=== PATIENT | female | born 1950 | race African-American/Black ===

== ENCOUNTER 2019-12-20 06:23 | Day surgery (SDC) | payer MEDICARE, OTHER ==
[2019-12-16 08:47] LABS: BASOPHILS % (AUTO) 1.2 % (0.0-2.0); EOSINOPHILS % (AUTO) 1.6 % (0.0-3.0); HEMATOCRIT 37.3 % (37.0-47.0); LYMPHOCYTES % (AUTO) 28.5 % (20.0-45.0); MEAN CORPUSCULAR VOLUME 85 FL (80-99); NEUTROPHILS % (AUTO) 62.8 % (45.0-75.0); PLATELET COUNT 258 K/UL (150-450); RED CELL DISTRIBUTION WIDTH 14.6 % (11.6-14.8); WHITE BLOOD COUNT 4.2 K/UL (4.8-10.8)
[2019-12-16 08:56] LABS: INR 0.9 (0.9-1.1)
[2019-12-16 08:59] LABS: ANION GAP 10 mmol/L (5-15); BLOOD UREA NITROGEN 12 mg/dL (7-18); CALCIUM 9.9 MG/DL (8.5-10.1); CARBON DIOXIDE 28 MMOL/L (21-32); CHLORIDE 106 MMOL/L (98-107); CREATININE 0.6 MG/DL (0.55-1.30); POTASSIUM 3.6 MMOL/L (3.5-5.1); SODIUM 144 MMOL/L (136-145)
--- NOTE | 2019-12-16 15:45 | Pre-op HX & Phy Repo 2 SIG ---
DATE OF ADMISSION: 12/20/2019 DATE OF EVALUATION: 12/16/2019 REASON FOR EVALUATION: I was asked by Dr. Ron Antony to see this 69-year-old female, who is going for elective surgery on the left eye. The surgery scheduled for December 20, 2019. The patient has a nuclear sclerotic cataract, left eye. Please see full Ophthalmology History and Physical by Dr. Ron Antony. The patient was evaluated in the Outpatient Procedure of [facility]. PAST MEDICAL HISTORY AND REVIEW OF SYSTEMS: Remarkable for GERD. Denies history of hypertension. No stroke. No chest pain, palpitation, or heart attack. Denies history of respiratory problem. No thyroid problem. No peptic ulcer disease. The patient has occasional heartburn and acid reflux. No renal failure. No hepatitis. No anemia. PAST SURGICAL HISTORY: Cholecystectomy, hysterectomy, and right ankle surgery for fracture. FAMILY HISTORY: Mother from sepsis and father has Alzheimer disease. ALLERGIES: Allergy to . PRESENT MEDICATIONS: Ranitidine. HABITS: The patient smoked for many years and keep smoking pack a day. Alcohol occasionally and occasional marijuana. PHYSICAL EXAMINATION: At [facility] outpatient procedure, the patient is alert, well-developed, well-nourished female, in her 70s. VITAL SIGNS: Blood pressure 158/76, temperature 97.2, pulse 63, respiration 18, and O2 saturation 99% on room air. SKIN: Dry, clear, and warm. No diaphoresis. No rashes. LYMPH NODES: Not enlarged. HEENT: Head is normocephalic, atraumatic. Ears, clear. Eyes, full description per Dr. Ron Antony. Mouth, clear and moist. No dentures. NECK: Supple. No jugular venous distention. Carotids artery +2. No palpable mass. Trachea midline. LUNGS: Clear to auscultation to percussion. No rales or rhonchi. HEART: Sinus rhythm. No ectopy. No murmur. No S3, S4. ABDOMEN: Soft, benign. Liver and spleen not enlarged. EXTREMITIES: Degenerative joint disease, knee. NERVOUS SYSTEM: No tremor. No nystagmus. GENITOURINARY: Denied dysuria. CVA nontender. LABORATORY DATA: ECG, normal sinus rhythm, 64 per minute, normal ECG. Lab work in normal limit. The patient to be NPO after midnight, Friday for surgery. IMPRESSION: 1. Nuclear sclerotic cataract, left eye. 2. GERD. 3. Degenerative joint disease, knee. PLAN: Cataract extraction, left eye with intraocular lens implant per Dr. Ron Antony. CONCLUSION: The patient is a 69-year-old female, has only history of degenerative joint disease and GERD. The patient's electrocardiogram was and normal vital signs are stable. Lab work within normal limit. The patient's condition is optimized for surgery. Thank you very much, Dr. Antony, for privilege to participate in presurgical care of this interesting patient. Dipti Greene M.D. DR: MICHEL JOB#: [id number] CC:
--- NOTE | 2019-12-17 12:00 | Opthalmology H&P ---
Ophthalmology H&P H&P Chief Complaint: decreased vision in left eye HPI Vision Affects Ability to: read, manage personal affairs HPI Narrative Blurry vision Exam Visual Acuity: OD 20/40 OS 20/50 Tension: OD 13 OS 14 Eye Exam: normal OU: external exam, palpebral fissure-width, marginal reflex distance, levator function, corneas, anterior chambers, fundus exam; findings: lens - NS cataract OS Assessment/Plan Treatment Plan: cataract extraction w/ lens implant Goals of Treatment: improvement of vision, enhance quality of life Attestation Attestation The risks and benefits of the surgery as well as alternative procedures were explained to the patient in detail. Ron Antony MD Dec 17, 2019 12:00
--- NOTE | 2019-12-17 12:01 | Pre-Procedure Note/Attestation ---
Pre-Procedure Note/Attestation Complete Prior to Procedure Planned Procedure: left Procedure Narrative: Cataract extraction with IOL implant left eye Indications for Procedure Pre-Operative Diagnosis: Nuclear sclerotic cataract left eye Attestation I attest that I discussed the nature of the procedure; its benefits; risks and complications; and alternatives (and the risks and benefits of such alternatives ), prior to the procedure, with the patient (or the patient's legal call center representative). I attest that, if there was a reasonable possibility of needing a blood transfusion, the patient (or the patient's legal call center representative) was given the [facility] standardized written summary, pursuant to the Stef Catrachito Blood Safety Act ([place] Health and Safety Code # 1645, as amended). I attest that I re-evaluated the patient just prior to the surgery and that there has been no change in the patient's H&P, except as documented below: Ron Antony MD Dec 17, 2019 12:01
[2019-12-20] VITALS (9 sets, daily range): BP systolic 150–168; BP diastolic 75–90
[~2019-12-20] VITALS: Ht 166.4 cm; Wt 77.1 kg
[~2019-12-20 06:23] MED LIST: ACETAMINOPHEN325 M1 ORAL; BENAZEPRIL HCL10 MG ORAL; BENAZEPRIL-HCT1 EACH ORAL; CIPROFLOXACIN500 M2 ORAL; CLARITIN5 MG ORAL; CYCLOBENZAPRINE10 MG ORAL; FEXOFENADINE HC60 MG ORAL; HYDROCODON-ACE1 EA15 ORAL; MONTELUKAST SOD10 MG ORAL; PRILOSEC20 MG ORAL; PROBIOTIC 4X C1 EACH PO; PROBIOTIC PO; PROTONIX40 MG ORAL; RANITIDINE HCL150 MG ORAL; SINGULAIR10 MG ORAL; TRAMADOL HCL50 MG ORAL; ZANTAC150 MG ORAL
[2019-12-20] MEDS ORDERED: Tetracaine 0.5% Opth 4ml Soln LEFT EYE ONE (07:00)
[2019-12-20] MEDS ORDERED: Akten 3.5% 1ml Btl LEFT EYE ONE (07:00)
[2019-12-20] MEDS ORDERED: Proparacaine 0.5% Opth Soln 15ml LEFT EYE ONE (07:00)
[2019-12-20] MEDS: Tropicamide 1% Opth 15ml Soln LEFT EYE SCH ×3 (07:32→07:45)
[2019-12-20] MEDS: Cyclopentolate 1% Opth Sol 2ml LEFT EYE SCH ×3 (07:33→07:45)
[2019-12-20] MEDS: Ciprofloxacin Opth Soln 2.5ml LEFT EYE SCH ×3 (07:33→07:46)
[2019-12-20] MEDS: Phenylephrine 10% Opth Soln 5ml LEFT EYE SCH ×3 (07:33→07:45)
[2019-12-20] MEDS ORDERED: Midazolam 2mg/2ml Inj ONE (08:42)
--- NOTE | 2019-12-20 08:57 | Anethesia Preoperative Eval ---
Anesthesia Pre-op PMH/ROS General Date of Evaluation: Dec 20, 2019 Time of Evaluation: 08:48 Anesthesiologist: Keshawn ASA Score: ASA 3 Mallampati Score Class I : Soft palate, uvula, fauces, pillars visible Class II: Soft palate, uvula, fauces visible Class III: Soft palate, base of uvula visible Class IV: Only hard plate visible Mallampati Classification: Class II Surgeon: Cassia Diagnosis: Cataract OS Surgical Procedure: Cat Ext IOL OS Anesthesia History: none Family History: no anesthesia problems Allergies: Coded Allergies: LATEX (Verified Allergy, Intermediate, rash, 12/20/19) DIAZEPAM (Unverified Adverse Reaction, Severe, HALLUCINATIONS, 12/16/19) Uncoded Allergies: CITRUS (Allergy, Severe, ITCHING, 12/16/19) Medications: see eMAR Patient NPO?: Yes Past Medical History Cardiovascular: Reports: HTN Pulmonary: Reports: asthma Gastrointestinal/Genitourinary: Reports: GERD HEENT: Reports: cataract (L), cataract (R) Musculoskeletal/Integumentary: Reports: OA PSxH Narrative: Cholecystectomy, Myomectomy, Davis Ankle SX Anesthesia Pre-op Phys. Exam Physician Exam Last Vital Signs Date Time Temp Pulse Resp B/P (MAP) Pulse Ox O2 Delivery O2 Flow Rate FiO2 12/20/19 07:42 Room Air 12/20/19 07:34 98.3 73 18 150/86 99 Constitutional: NAD Neurologic: CN 2-12 intact Cardiovascular: RRR Respiratory: CTA Gastrointestinal: S/NT/ND Airway Exam Mallampati Score: Class II MO: full ROM: full Teeth: missing, intact Anesthesia Pre-op A/P Risk Assessment & Plan Assessment: ASA 3 Plan: GA Status Change Before Surgery: Gautam Hartman MD Dec 20, 2019 08:57
--- NOTE | 2019-12-20 08:59 | Immediate Post-Op Evaluation ---
Immediate Post-Op Evalulation Immediate Post-Op Evalulation Procedure: Cat Ext IOL OS Date of Evaluation: Dec 20, 2019 Time of Evaluation: 09:32 IV Fluids: 700 LR Blood Products: 0 Estimated Blood Loss: 1 Urinary Output: 0 Blood Pressure Systolic: 160 Blood Pressure Diastolic: 103 Pulse Rate: 83 Respiratory Rate: 16 O2 Sat by Pulse Oximetry: 100 Temperature (Fahrenheit): 97.6 Pain Score (1-10): 1 Nausea: No Vomiting: No Complications 0 Patient Status: awake, reacts, patent, none Hydration Status: adequate Gautam Liao MD Dec 20, 2019 08:59
[2019-12-20] MEDS ORDERED: NS Irrig 1000ml ONE (09:00)
[2019-12-20] MEDS ORDERED: LR 1000ml ONE (09:00)
[2019-12-20] MEDS ORDERED: Propofol 200mg/20ml IV ONE (09:00)
[2019-12-20] MEDS ORDERED: Lidocaine 1% MPF 10mg/ml 5ml ONE (09:00)
[2019-12-20] MEDS ORDERED: Sterile Water Irrig 1000ml IRRIG ONE (09:00)
--- NOTE | 2019-12-20 09:01 | 48 Hour Post Anesthesia Eval ---
Post Anesthesia Evaluation Procedure: Cat Ext IOL OS Date of Evaluation: Dec 20, 2019 Time of Evaluation: 11:43 Blood Pressure Systolic: 152 0: 71 Pulse Rate: 82 Respiratory Rate: 18 Temperature (Fahrenheit): 98 O2 Sat by Pulse Oximetry: 97 Airway: patent Nausea: No Vomiting: No Pain Intensity: 1 Hydration Status: adequate Cardiopulmonary Status: Stable Mental Status/LOC: patient returned to baseline Follow-up Care/Observations: 0 Post-Anesthesia Complications: 0 Follow-up care needed: ready to discharge Gautam Liao MD Dec 20, 2019 09:01
[2019-12-20] MEDS ORDERED: DiphenhydrAMINE 50mg/ml Inj IVP PRN (09:15)
[2019-12-20] MEDS ORDERED: oxyCODONE HCL/Acetaminophen 5/325mg ORAL PRN (09:15)
[2019-12-20] MEDS ORDERED: HYDROcodone/Acetamin 7.5/325 tab ORAL PRN (09:15)
[2019-12-20] MEDS ORDERED: Labetalol 5mg/ml 20ml vial IV PRN (09:15)
[2019-12-20] MEDS ORDERED: Atropine Sulfate 0.4mg/ml inj IVP PRN (09:15)
[2019-12-20] MEDS ORDERED: Ketorolac 30mg Inj IV PRN ×2 (09:15)
[2019-12-20] MEDS ORDERED: LR 1000ml 1,000 ML IVLG SCH (09:15)
[2019-12-20] MEDS ORDERED: Metoclopramide 10mg/2ml Inj IVP PRN (09:15)
[2019-12-20] MEDS ORDERED: HYDROcodone/Acetamin 5/325 tab ORAL PRN (09:15)
[2019-12-20] MEDS ORDERED: Hydromorphone 0.5mg/0.5ml inj IVP PRN (09:15)
[2019-12-20] MEDS ORDERED: Meperidine 25mg/0.5ml Inj (FOR RIGORS ONLY) IV PRN (09:15)
[2019-12-20] MEDS ORDERED: fentaNYL 100 mcg/2 mL IV PRN (09:15)
[2019-12-20] MEDS ORDERED: Sodium Hyaluronate 10 mg/ml 0.85ml ONE (13:30)
[2019-12-20] MEDS ORDERED: Povidone-Iodine 5% opth solution ONE (13:30)
[2019-12-20] MEDS ORDERED: BSS 500ml btl ONE (13:30)
[2019-12-20] MEDS ORDERED: BSS 15ml BTL ONE (13:30)
--- NOTE | 2019-12-22 08:54 | Brief Operative Note ---
Immediate Post Operative Note Operative Note Chief Complaint: Blurry vision Pre-op Diagnosis: Nuclear sclerotic cataract left eye Procedure: Cataract extraction with IOL implant left eye Post-op Diagnosis: Pseudo OS Findings: consistent w/pre-op dx studies Surgeon: Ron Antony MD Anesthesiologist: Gautam Liao MD Anesthesia: MAC Specimen: none Complications: none Condition: stable Fluids: LR Estimated Blood Loss: none Drains: none Implant(s) used?: Yes - IOL-OS Ron Antony MD Dec 22, 2019 08:54
--- NOTE | 2019-12-22 09:00 | Operative Note - PDOC ---
Operative Note Operative Note Date of Operation/Procedure: Dec 20, 2019 Chief Complaint: Blurry vision Pre-op Diagnosis: Nuclear sclerotic cataract left eye Procedure: Cataract extraction with IOL implant left eye Post-op Diagnosis: Pseudo OS Operative Findings: consistent w/pre-op dx studies Surgeon: Ron Antony MD Anesthesiologist: Gautam Liao MD Anesthesia: MAC Specimen: none Complications: none Condition: stable Fluids: LR Estimated Blood Loss: none Drains: none Implant(s) used?: Yes - IOL-OS Indications for Procedure Nuclear sclerotic cataract left eye Description of Procedure This patient has been complaining visually significant cataract in the left eye with the best corrected visual acuity of 20/50 under moderate glare conditions worse. The patient complains of difficulties with glare in performing activities of daily living and wants to manage personal affairs with comfort and accuracy and see well enough to move with safety at home and outdoors. The risks, benefits and alternatives of the procedure were discussed with the patient in the office prior to scheduling surgery. All questions from the patient were answered after the surgical procedure was explained in detail. The risks of the procedure as explained to the patient include, but are not limited to, pain, infection, bleeding, loss of vision, retinal detachment, need for further surgery, loss of lens nucleus, double vision, etc. Alternative procedures were discussed which include, to do nothing or seek a second opinion. Informed consent for this procedure was obtained from the patient. The patient was referred to a primary care physician for a cardiopulmonary clearance prior to surgery, after proper evaluation was done patient was properly scheduled for outpatient surgery. The patient was brought to the operating room where the anesthesiologist established I.V. lines and cardiac monitoring leads. Mild intravenous sedation was administered. The patient was then prepared with a 5% solution of povidone -iodine to the conjunctival fornix and lashes, and a 5% solution of povidone- iodine to the lids and periorbital skin. The patient was then draped in the usual sterile fashion. A lid speculum was then placed in the operative eye. A keratome blade was then used to create a biplanar incision into the anterior chamber. Viscoelastics was then instilled into the anterior chamber. A capsulorrhexis was then fashioned with an utrata forceps followed by hydrodissection and hydro delineation of the lens nucleus. Paracentesis incision was made at 3 o'clock with sharp blade. The phacoemulsification unit, after being properly adjusted and tested, was then used to emulsify the nucleus followed by aspiration and irrigation of residual cortical material. Healon was then instilled into the anterior chamber. The corneal wound was then enlarged to the size of the optic with the hosea keratome blade. The intraocular lens was then inspected for right power and size and thought to be satisfactory. Then the lens was gently placed in the capsular bag. Positioning within the capsular bag was confirmed by direct visualization. Optic centration was accomplished with a Sinskey hook. Viscoelastics was removed from the anterior chamber using the irrigation and aspiration unit. The corneal wound was then tested for leaks and none were found. The lid speculum were then removed. Sponge and needle counts were correct. An eye patch and shield were placed over the operative eye. The patient was taken to the recovery room in stable condition. There were no complications. The patient tolerated the procedure well. The patient was then transferred to the ambulatory surgery unit in stable and satisfactory condition , was given detailed written instructions and asked to follow up in the office the next day. Ron Antony MD Dec 22, 2019 09:00
== END 2019-12-20 10:30 | disposition home or self-care (01) ==
LOC: SUR 06:23
DX: H25.12 Age-related nuclear cataract, left eye (principal); K21.9 Gastro-esophageal reflux disease without esophagitis; Z90.49 Acquired absence of other specified parts of digestive tract; Z90.710 Acquired absence of both cervix and uterus; M17.10 Unilateral primary osteoarthritis, unspecified knee; I10 Essential (primary) hypertension; M19.90 Unspecified osteoarthritis, unspecified site
CPT/HCPCS: 36415; 66984; 80048; 85025; 85610; 85730; J2250; J2704; J3370; J7120; V2632; 94003; 94150

== ENCOUNTER 2020-05-15 05:09 | Day surgery (SDC) | payer MEDICARE, OTHER ==
--- NOTE | 2020-05-12 10:08 | Opthalmology H&P ---
Ophthalmology H&P H&P Chief Complaint: decreased vision in right eye HPI Vision Affects Ability to: read, manage personal affairs HPI Narrative Blurry vision Exam Visual Acuity: OD:Counting Fingers OS: 20/40 Tension: OD 14 OS 10 Eye Exam: normal OU: external exam, palpebral fissure-width, marginal reflex distance, levator function, corneas, anterior chambers, fundus exam; findings: lens - NS Cataract OD/ Pseudo OS Assessment/Plan Treatment Plan: cataract extraction w/ lens implant Goals of Treatment: improvement of vision, enhance quality of life Attestation Attestation The risks and benefits of the surgery as well as alternative procedures were explained to the patient in detail. Ron Antony MD May 12, 2020 10:08
--- NOTE | 2020-05-12 10:09 | Pre-Procedure Note/Attestation ---
Pre-Procedure Note/Attestation Complete Prior to Procedure Planned Procedure: right Procedure Narrative: Cataract extraction with intraocular lens implant right eye Indications for Procedure Pre-Operative Diagnosis: Nuclear sclerotic cataract right eye Attestation I attest that I discussed the nature of the procedure; its benefits; risks and complications; and alternatives (and the risks and benefits of such alternatives ), prior to the procedure, with the patient (or the patient's legal patient portal representative). I attest that, if there was a reasonable possibility of needing a blood transfusion, the patient (or the patient's legal patient portal representative) was given the [facility] standardized written summary, pursuant to the Stef Catrachito Blood Safety Act ([place] Health and Safety Code # 1645, as amended). I attest that I re-evaluated the patient just prior to the surgery and that there has been no change in the patient's H&P, except as documented below: Ron Antony MD May 12, 2020 10:09
[2020-05-15] VITALS (11 sets, daily range): BP systolic 126–161; BP diastolic 73–84
[~2020-05-15] VITALS: Ht 167.6 cm; Wt 78.0 kg
[2020-05-15] MEDS: Ciprofloxacin Opth Soln 5ml RIGHT EYE SCH ×3 (05:47→06:01)
[2020-05-15] MEDS: Cyclopentolate 1% Opth Sol 2ml RIGHT EYE SCH ×3 (05:47→06:01)
[2020-05-15] MEDS: Tobramycin Op Soln 0.3% 5ml RIGHT EYE SCH ×3 (05:47→06:01)
[2020-05-15] MEDS: Phenylephrine 10% Opth Soln 5ml RIGHT EYE SCH ×3 (05:47→06:01)
[2020-05-15] MEDS: Tropicamide 1% Opth 15ml Soln RIGHT EYE SCH ×3 (05:47→06:01)
[2020-05-15] MEDS ORDERED: Proparacaine 0.5% Opth Soln 15ml RIGHT EYE ONE (07:00)
[2020-05-15] MEDS ORDERED: Akten 3.5% 1ml Btl RIGHT EYE ONE (07:00)
[2020-05-15] MEDS ORDERED: Tetracaine 0.5% Opth 4ml Soln RIGHT EYE ONE (07:00)
[2020-05-15] MEDS ORDERED: Carbachol 0.01% Op Soln 1.5ml vial ONE (07:17)
[2020-05-15] MEDS ORDERED: EPINEPHrine 1mg/1ml Amp ONE (07:17)
[2020-05-15] MEDS ORDERED: acetaZOLAMIDE 500mg Inj ONE (07:17)
[2020-05-15] MEDS ORDERED: Lidocaine 4% Amp 5ml ONE (07:17)
[2020-05-15] MEDS ORDERED: Lidocaine 2% MPF 5ml Vial INJ ONE (07:17)
[2020-05-15] MEDS ORDERED: Sodium Hyaluronate 10 mg/ml 0.85ml ONE ×2 (07:18→08:27)
[2020-05-15] MEDS ORDERED: BSS 500ml btl ONE (07:18)
[2020-05-15] MEDS ORDERED: BSS 15ml BTL ONE (07:18)
[2020-05-15] MEDS ORDERED: Povidone-Iodine 5% opth solution ONE (07:18)
[2020-05-15] MEDS ORDERED: Bupivacaine 0.75% 30ml vial INJ ONE (07:18)
--- NOTE | 2020-05-15 07:21 | Anethesia Preoperative Eval ---
Anesthesia Pre-op PMH/ROS General Date of Evaluation: May 15, 2020 Time of Evaluation: 07:20 Anesthesiologist: micki ASA Score: ASA 2 Mallampati Score Class I : Soft palate, uvula, fauces, pillars visible Class II: Soft palate, uvula, fauces visible Class III: Soft palate, base of uvula visible Class IV: Only hard plate visible Mallampati Classification: Class II Surgeon: emerald Diagnosis: cataract Surgical Procedure: cataract extraction right eye Anesthesia History: none Family History: no anesthesia problems Allergies: Coded Allergies: LATEX (Verified Allergy, Intermediate, rash, 12/20/19) DIAZEPAM (Unverified Adverse Reaction, Severe, HALLUCINATIONS, 12/16/19) Uncoded Allergies: CITRUS (Allergy, Severe, ITCHING, 12/16/19) Medications: see eMAR Patient NPO?: Yes NPO Date: May 15, 2020 NPO Time: 00:01 Past Medical History Cardiovascular: Reports: HTN - ?; Denies: CAD, RI, valve dz, arrhythmia, other Pulmonary: Reports: asthma; Denies: COPD, MANJU, other Gastrointestinal/Genitourinary: Reports: GERD Neurologic/Psychiatric: Denies: dementia, CVA, depression/anxiety, TIA, other Endocrine: Denies: DM, hypothyroidism, steroids, other HEENT: Reports: cataract (R); Denies: cataract (L), glaucoma, CHIGNIK LAGOON (L), CHIGNIK LAGOON (R), other Hematology/Immune: Denies: anemia, DVT, bleeding disorder, other Musculoskeletal/Integumentary: Reports: OA PSxH Narrative: cataract left eye, myomectomy Anesthesia Pre-op Phys. Exam Physician Exam Last Vital Signs Date Time Temp Pulse Resp B/P (MAP) Pulse Ox O2 Delivery O2 Flow Rate FiO2 05/15/20 05:53 Room Air 05/15/20 05:52 97.3 65 18 142/76 100 Constitutional: NAD Neurologic: CN 2-12 intact Cardiovascular: RRR Respiratory: CTA Gastrointestinal: S/NT/ND Airway Exam Mallampati Classification 2 Mallampati Score: Class II MO: full ROM: full Dentures: no upper, no lower Anesthesia Pre-op A/P Studies Pre-op Studies: EKG - sr Risk Assessment & Plan Assessment: denies changes in health, covid neg Plan: mac Status Change Before Surgery: No Pre-Antibiotics Drug: declined Martina Leal CRNA May 15, 2020 07:21
[2020-05-15] MEDS ORDERED: fentaNYL 100 mcg/2 mL IV ONE (07:23)
[2020-05-15] MEDS ORDERED: Midazolam 2mg/2ml Inj ONE (07:23)
--- NOTE | 2020-05-15 08:29 | Immediate Post-Op Evaluation ---
Immediate Post-Op Evalulation Immediate Post-Op Evalulation Procedure: cataract extration right eye Date of Evaluation: May 15, 2020 Time of Evaluation: 08:28 IV Fluids: 300 Blood Pressure Systolic: 140 Blood Pressure Diastolic: 80 Pulse Rate: 69 Respiratory Rate: 14 O2 Sat by Pulse Oximetry: 98 Temperature (Fahrenheit): 97.8 Nausea: No Vomiting: No Complications none Patient Status: awake, reacts, patent Hydration Status: adequate Drug: none Martina Leal CRNA May 15, 2020 08:29
[2020-05-15] MEDS ORDERED: LR 1000ml ONE (09:30)
[2020-05-15] MEDS ORDERED: NS Irrig 1000ml ONE (09:30)
[2020-05-15] MEDS ORDERED: Sterile Water Irrig 1000ml IRRIG ONE (09:30)
--- NOTE | 2020-05-15 11:21 | 48 Hour Post Anesthesia Eval ---
Post Anesthesia Evaluation Procedure: cataract extration right eye Date of Evaluation: May 15, 2020 Time of Evaluation: 11:20 Blood Pressure Systolic: 156 0: 79 Pulse Rate: 56 Respiratory Rate: 14 O2 Sat by Pulse Oximetry: 98 Airway: patent Nausea: No Vomiting: No Hydration Status: adequate Cardiopulmonary Status: stable Mental Status/LOC: patient returned to baseline Post-Anesthesia Complications: none Follow-up care needed: N/A Martina Leal CRNA May 15, 2020 11:21
--- NOTE | 2020-05-15 14:06 | Brief Operative Note ---
Immediate Post Operative Note Operative Note Chief Complaint: Blurry vision Pre-op Diagnosis: Nuclear sclerotic cataract right eye Procedure: Cataract extraction with IOL implant right eye Post-op Diagnosis: Pseudophakia OD Findings: consistent w/pre-op dx studies Surgeon: Ron Antony MD Anesthesiologist: Martina Leal CRNA Anesthesia: MAC Specimen: none Complications: none Condition: stable Fluids: LR Estimated Blood Loss: none Drains: none Implant(s) used?: Yes - IOL-OD Ron Antony MD May 15, 2020 14:06
--- NOTE | 2020-05-15 14:10 | Operative Note - PDOC ---
Operative Note Operative Note Date of Operation/Procedure: May 15, 2020 Chief Complaint: Blurry vision Pre-op Diagnosis: Nuclear sclerotic cataract right eye Procedure: Cataract extraction with IOL implant right eye Post-op Diagnosis: Pseudophakia OD Operative Findings: consistent w/pre-op dx studies Surgeon: Ron Antony MD Anesthesiologist: Martina Leal CRNA Anesthesia: MAC Specimen: none Complications: none Condition: stable Fluids: LR Estimated Blood Loss: none Drains: none Implant(s) used?: Yes - IOL-OD Indications for Procedure Nuclear sclerotic cataract right eye Description of Procedure This patient has been complaining visually significant cataract in the right eye with the best corrected visual acuity of counting fingers. The patient complains of difficulties with glare in performing activities of daily living and wants to manage personal affairs with comfort and accuracy and see well enough to move with safety at home and outdoors. The risks, benefits and alternatives of the procedure were discussed with the patient in the office prior to scheduling surgery. All questions from the patient were answered after the surgical procedure was explained in detail. The risks of the procedure as explained to the patient include, but are not limited to, pain, infection, bleeding, loss of vision, retinal detachment, need for further surgery, loss of lens nucleus, double vision, etc. Alternative procedures were discussed which include, to do nothing or seek a second opinion. Informed consent for this procedure was obtained from the patient. The patient was referred to a primary care physician for a cardiopulmonary clearance prior to surgery, after proper evaluation was done patient was properly scheduled for outpatient surgery. The patient was brought to the operating room where the anesthesiologist established I.V. lines and cardiac monitoring leads. Mild intravenous sedation was administered. The patient was then prepared with a 5% solution of povidone -iodine to the conjunctival fornix and lashes, and a 5% solution of povidone- iodine to the lids and periorbital skin. The patient was then draped in the usual sterile fashion. A lid speculum was then placed in the operative eye. A keratome blade was then used to create a biplanar incision into the anterior chamber. Viscoelastics was then instilled into the anterior chamber. A 3-mm single pass clear corneal incision was made just anterior to the vascular arcade of the temporal limbus using a keratome. Anterior capsulorrhexis was created. The nucleus was hydrodissected and hydrodelineated, and was freely movable in the capsular bag. The nucleus was then phacoemulsified using a quadrantic [id number] technique. Following the deep groove formation, the lens was split bimanually and the resultant quadrants and cortical material was removed under vacuum burst -mode phacoemulsification. Peripheral cortex was removed with the irrigation and aspiration handpiece. The capsular bag was expanded with viscoelastic. The intraocular lens was then inspected for right power and size and thought to be satisfactory. The implant was inspected under the microscope and found to be free of defects. The implant was inserted into the cartridge system under viscoelastic and placed in the capsular bag. The trailing haptic was positioned with the cartridge system. Viscoelastics was removed from the anterior chamber using the irrigation and aspiration unit. The corneal wound was then tested for leaks and none were found. The lid speculum were then removed. Sponge and needle counts were correct. An eye patch and shield were placed over the operative eye. The patient was taken to the recovery room in stable condition. There were no complications. The patient tolerated the procedure well. The patient was then transferred to the ambulatory surgery unit in stable and satisfactory condition , was given detailed written instructions and asked to follow up in the office the next day. Ron Antony MD May 15, 2020 14:10
== END 2020-05-15 09:35 | disposition home or self-care (01) ==
LOC: SUR 05:09
DX: H25.11 Age-related nuclear cataract, right eye (principal); I10 Essential (primary) hypertension; K21.9 Gastro-esophageal reflux disease without esophagitis; M19.90 Unspecified osteoarthritis, unspecified site; Z91.040 Latex allergy status; Z88.8 Allergy status to other drugs, medicaments and biological substances
CPT/HCPCS: 66984; 94003; J2250; J3010; J3370; J7120; V2632; 94150

== ENCOUNTER 2020-08-10 16:13 | Inpatient (IN) | payer MEDICARE, OTHER ==
[~2020-08-10] VITALS: Ht 167.6 cm; Wt 78.4 kg
--- NOTE | 2020-08-10 16:45 | Emergency Room Report ---
History of Present Illness General Chief Complaint: General Complaint Source: Patient Present Illness HPI 70-year-old -[place] female with past medical history of recently diagnosed PE s/p right femoral Angio-Seal at [facility] 08/02/2020, right lower extremity DVT on eliquis, hypertension, dyslipidemia, neuropathy complaint of left lower extremity swelling x2 days. Also c/o SOB. The patient's symptoms were gradual onset, severity was moderate, duration since 1 day She called the exchange and the nurse told her to proceed to the nearest ER immediately. Quality: Swelling, shortness of breath Past medical history: Hypertension, PE, DVT, anticoagulation, dyslipidemia Past surgical history: Right femoral Angio-Seal vascular closure device Smoking: Denies Alcohol use: Denies Drug use: Denies Review of systems: CONST: No fevers or chills, No night sweats PULMONARY: No productive cough, ++ shortness of breath CARDIAC: No chest pain, No palpitations GI: No vomiting, No diarrhea , No melena_or_BRBPR : No dysuria, No hematuria, No discharge NEURO: No new_focal_weakness_or_numbness, No confusion, No vision changes 14 point Review of Systems is otherwise negative except per HPI Physical Exam: GENERAL: Awake_alert_ nontoxic, no acute distress Spo2 99% on RA -normal EYES: Extraocular muscles are intact. Conjunctivae clear. Lids without swelling ENT: External nose and ear normal_in_appearance. Oropharynx clear. Head_atraumatic, Moist_oral_mucosa NECK: No JVD. No meningismus. No thyromegaly. Supple. Trachea midline RESP: Normal respiratory effort. Symmetric rise. No stridor. Clear_to_auscultation_No_rales_No_wheezes CARDIAC: Regular rate and regular rhytm. Left lower extremity swelling. Negative Homans' sign. ABDOMEN: Soft. Nondistended. Nontender_No_rebound_or_guarding. MSK: Normal muscle tone, without rigidity. Extremities without asymmetric deformity or swelling. SKIN: Warm and dry. No visible cyanosis or pallor. Right medial ankle surgical incision scar is clean dry and intact NEUROLOGIC: Alert, oriented x3. Motor_and_sensation_grossly_intact. No truncal ataxia. Gait_normal Psych: Normal mood and affect, normal judgment and insight - COORDINATION OF CARE Case was discussed with: Patient , Patient's Physician Any labs and imaging that were ordered were interpreted as part of the medical decision making: Medical Decision Making/Plan: Differential diagnosis includes acute myocardial infarction, acute coronary syndrome and unstable angina, pulmonary embolism, pneumothorax, pneumonia, and aortic dissection, among others. Patient is currently well appearing with stable vitals. Bilateral lower extremity is swollen. EKG shows normal sinus rhythm. No evidence of STEMI, and initial troponin is negative. Chest xray shows no evidence of pneumothorax, pneumonia, or significant pleural effusion. Labs show critically elevated troponin of 0.167. NSTEMI. Do not have access to previous medical records. I did attempt to page patient's vascular surgeon who inserted her Angio-Seal on 08/02/2028, however have not been able to reach him by phone. His number is [phone] Aspirin given. No hemodynamic instability to suggest massive PE. Will not do heparin drip at this time. Will continue to monitor hemodynamics. The pain is not classic for pericarditis or myocarditis, and the patient has no significant risk factors for a pericardial effusion and has stable vitals signs, unlikely to have tamponade. Pain is not likely to be pulmonary embolism, patient has no significant PE risk factors. The presentation is not consistent with dissection, pain is not severe, radiating to back, or tearing in nature. Has normal bilateral radial and pedal pulses. This patient appears to be a suitable candidate for transfer to telemetry floor at this time with orders from the admitting physician who is aware of the patient's evaluation, ancillary test findings, and current condition, and agrees with treatment and disposition. I spoke with Dr. Waters, and reviewed the patients presentation, workup, results, and treatment. They will admit the patient for further care and evaluation, and assume care of the patient at this time. 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 COVID-19 Screening: Negative COVID-19 COVID-19 Testing Source: rapid a week ago Nursing Documentation-PMH Hx Cardiac Problems: Yes - pulmonary embolism, NSTEMI Hx Hypertension: Yes Hx Asthma: Yes Hx Cancer: No Hx Gastrointestinal Problems: Yes Hx Neurological Problems: No Physical Exam Vital Signs Date Time Temp Pulse Resp B/P (MAP) Pulse Ox O2 Delivery O2 Flow Rate FiO2 08/10/20 16:27 97.9 62 18 115/66 (82) Sp02 EP Interpretation: reviewed, normal Procedures Critical Care Time Critical Care Time Critical Care Statement Organ systems at risk include: Circulatory cardiac, pulmonary, Critical care performed for 45 minutes. Time is exclusive of separately billable procedures. Time includes: direct patient care, continuous monitoring and multiple patient reassessment, coordination of patient care, review of patient's medical records, medical consultation, family consultation regarding treatment decisions and documentation of patient care. Medical Decision Making Diagnostic Impression: Primary Impression: NSTEMI (non-ST elevated myocardial infarction) Additional Impressions: Pulmonary embolism DVT (deep vein thrombosis) in Elevated troponin I level CHF (congestive heart failure) EKG Diagnostic Results Troponin ordered: Yes When was troponin ordered?: Aug 10, 2020 EKG Time: 17:40 Rate: normal Rhythm: NSR ST Segments: no acute changes ASA given to the pt in ED: Yes CLAUDIA Scribe Text 12-lead EKG (interpreted by me) Time: 1635 Indication: Rhythm analysis Tracing visualized and Interpreted by me. Rhythm: Normal sinus rhythm Rate: 64 bpm QTc: 431 Morphology: No_significant_ST_elevations_or_depressions, No STEMI Impression: Normal_sinus_rhythm_without_significant_abnormality Rhythm Strip Diag. Results Rhythm Strip Time: 17:41 EP Interpretation: yes Rate: 64 Rhythm: NSR, no PVC's, no ectopy Chest X-Ray Diagnostic Results Chest X-Ray Diagnostic Results : Chest X-Ray Ordered: Yes # of Views/Limited/Complete: 1 View Indication: Chest Pain EP Interpretation: Yes PA Xray: Interpretation reviewed Interpretation: no consolidation, no effusion, no pneumothorax, no acute cardiopulmonary disease Impression: No acute disease Reevaluation Time: 17:41 Last Vital Signs Date Time Temp Pulse Resp B/P (MAP) Pulse Ox O2 Delivery O2 Flow Rate FiO2 08/10/20 16:27 97.9 62 18 115/66 (82) Status: improved Disposition: ADMITTED INPATIENT - [facility] Admit Decision Time: 17:41 Condition: Stable Danielle Mishra D.O. Aug 10, 2020 16:45
--- NOTE | 2020-08-10 16:50 | NUR ---
ED Nurse Note: Pt walked into ED for L lower leg edema nonpitting for 1 week. Pt had pulmonary embolism last week at [facility]. Pt was put on Xarelto last week. Pt is alert and orientedx4, ambulatory. Pt has been seen by CHELSY.
[2020-08-10 17:03] VITALS: BP 122/68
--- NOTE | 2020-08-10 17:10 | Diagnostic Imaging Report ---
Indication: Chest pain Technique: One view of the chest Comparison: none Findings: No acute infiltrates, effusions, or congestion. Tortuous calcified aorta. Normal heart size. Upper mediastinum unremarkable. Impression: No acute process.
[2020-08-10 17:15] LABS: BASOPHILS % (AUTO) 1.6 % (0.0-2.0); EOSINOPHILS % (AUTO) 1.8 % (0.0-3.0); HEMOGLOBIN 9.8 G/DL (12.0-16.0); LYMPHOCYTES % (AUTO) 29.6 % (20.0-45.0); MEAN CORPUSCULAR VOLUME 90 FL (80-99); MONOCYTES % (AUTO) 6.8 % (1.0-10.0); NEUTROPHILS % (AUTO) 60.3 % (45.0-75.0); PLATELET COUNT 273 K/UL (150-450); RED BLOOD COUNT 3.45 M/UL (4.20-5.40); WHITE BLOOD COUNT 6.8 K/UL (4.8-10.8)
[2020-08-10 17:26] LABS: INR 1.5 (0.9-1.1)
[2020-08-10 17:33] LABS: CALCIUM 8.2 MG/DL (8.5-10.1); CREATININE 1.1 MG/DL (0.55-1.30); POTASSIUM 3.3 MMOL/L (3.5-5.1)
[2020-08-10 17:37] LABS: ALBUMIN 2.3 G/DL (3.4-5.0); ALBUMIN/GLOBULIN RATIO 0.7 (1.0-2.7); BILIRUBIN,TOTAL 0.4 MG/DL (0.2-1.0)
[2020-08-10] MEDS ORDERED: Enalaprilat 2.5mg/2ml Inj IV ONE (18:00)
[2020-08-10] MEDS ORDERED: Nitroglycerin 2% oint pkt TOPIC ONE (18:00)
[2020-08-10] MEDS ORDERED: Morphine Sulfate 2mg/ml Inj(IV/IM USE ONLY) IVP ONE (18:15)
--- NOTE | 2020-08-10 18:19 | Diagnostic Imaging Report ---
EXAM: US Duplex Bilateral Lower Extremities Veins CLINICAL HISTORY: DVT TECHNIQUE: Real-time duplex ultrasound scan of the bilateral lower extremity veins integrating B-mode two-dimensional vascular structure, Doppler spectral analysis, color flow Doppler imaging and compression. COMPARISON: None FINDINGS: Right deep veins: Nonocclusive thrombus in the mid and distal right superficial femoral vein and popliteal vein. 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 Right superficial veins: Unremarkable. No thrombus in the visualized right great saphenous vein. Left deep veins: Unremarkable. No DVT in the left common femoral, femoral, proximal deep femoral or popliteal veins. The veins demonstrate normal color flow, are normally compressible, with normal phasic flow and/or augmentation response. Left superficial veins: Unremarkable. No thrombus in the visualized left great saphenous vein. Soft tissues: No acute findings. No popliteal cyst. IMPRESSION: Nonocclusive thrombus in the mid and distal right superficial femoral vein and popliteal vein. No deep venous thrombosis identified in the left lower extremity. <MYCVCSECTION> Communications: 08/10/20 18:22 Call Doctor Regarding Acute DVT, called CLAUDIA Okeefe on 08/10 18:22 (-07:00)
--- NOTE | 2020-08-10 18:30 | NUR ---
ED Nurse Note: COVID swab sent.
--- NOTE | 2020-08-10 18:46 | NUR ---
ED Nurse Note: pt okay to eat per dr salinas. sister bringing in food.
[2020-08-10 18:52] VITALS: BP 134/89
[2020-08-10] MEDS ORDERED: Mylanta II UD 30ml ORAL PRN (19:00)
[2020-08-10] MEDS ORDERED: Milk of Magnesia 30ml Ud ORAL PRN (19:00)
[2020-08-10] MEDS ORDERED: HYDROmorphone 1mg/ml Carpuject IVP PRN (19:00)
[2020-08-10] MEDS ORDERED: Albuterol/Ipratropium 3ml neb HHN PRN (19:00)
[2020-08-10] MEDS ORDERED: Nitroglycerin Subl 0.4mg tab SL PRN (19:00)
[2020-08-10] MEDS ORDERED: Zolpidem 5mg tab ORAL PRN (19:00)
--- NOTE | 2020-08-10 19:02 | History & Physical ---
History and Physical History & Physicial Admission received. Chart reviewed. Admission orders placed. Full Admission note to follow. d/w ED physician Kerwin Waters M.D. Aug 10, 2020 19:02
--- NOTE | 2020-08-10 20:45 | NUR ---
TRANSFER TO FLOOR: Patient transferred to as ordered, per Dr Albarado. Report given to REMIGIO Uribe. Belongings and medications given to . Family and or S/O informed of transfer.
[2020-08-10] MEDS ORDERED: Heparin 25,000u/D5W 500ml 500 ML IV SCH (21:00)
--- NOTE | 2020-08-10 21:00 | NUR ---
NURSE NOTES: Patient transferred to floor by 2 ED personnel. Received report from REMIGIO James. Patient awake, alert and oriented. AOx4, able to verbalize needs. Patient ambulatory and able to transfer to bedside commode without assistance. school lunch monitor placed on patient. Gown and yellow socks replaced. IV site flushed; patent. Weight obtained through bedscale. Reminded patient of her 1.5L fluid restriction. Oriented to hospital policies and protocols. Admitted under the service of Dr. Albarado. On room air, saturating well. Breathing unlabored and even. No complaints of pain or discomfort at this time. skin intact. Noted to have bilateral lower leg edema. Call light placed within reach. Belongings accounted for and placed at bedside. Patient's belonging list signed. Patient arrived with medications, but was told that she will ask her nephew to pick them up tomorrow AM. All meds accounted for. Bed in lowest position, brakes engaged and bed alarm on. Bed rails raised x2. Will continue to monitor.
[2020-08-10] MEDS ORDERED: Enalaprilat 2.5mg/2ml Inj IV PRN (21:15)
[2020-08-10] MEDS ORDERED: METOPROLOL SUCC25 MG ORAL (21:24)
[2020-08-10] MEDS ORDERED: PANTOPRAZOLE SO40 MG ORAL (21:24)
[2020-08-10] MEDS ORDERED: GABAPENTIN600 MG ORAL (21:24)
[2020-08-10] MEDS ORDERED: ATORVASTATIN CA40 MG ORAL (21:24)
[2020-08-10] MEDS ORDERED: CREON DR 12,001 EACH PO (21:24)
[2020-08-11] VITALS: BP 103/57
[2020-08-11 04:00] VITALS: BP 103/57
[2020-08-11 04:49] LABS: EOSINOPHILS % (AUTO) 1.7 % (0.0-3.0); HEMATOCRIT 25.9 % (37.0-47.0); HEMOGLOBIN 8.7 G/DL (12.0-16.0); LYMPHOCYTES % (AUTO) 28.7 % (20.0-45.0); MEAN CORPUSCULAR VOLUME 84 FL (80-99); NEUTROPHILS % (AUTO) 61.6 % (45.0-75.0); PLATELET COUNT 253 K/UL (150-450); RED BLOOD COUNT 3.09 M/UL (4.20-5.40); RED CELL DISTRIBUTION WIDTH 13.8 % (11.6-14.8); WHITE BLOOD COUNT 5.5 K/UL (4.8-10.8)
[2020-08-11 05:08] LABS: ANION GAP 7 mmol/L (5-15); BLOOD UREA NITROGEN 10 mg/dL (7-18); CALCIUM 7.7 MG/DL (8.5-10.1); CARBON DIOXIDE 28 MMOL/L (21-32); CHLORIDE 107 MMOL/L (98-107); CHOLESTEROL 141 MG/DL (< 200); HDL CHOLESTEROL 93 MG/DL (40-60); SODIUM 142 MMOL/L (136-145); TRIGLYCERIDES 48 MG/DL (30-150)
--- NOTE | 2020-08-11 06:16 | NUR ---
NURSE NOTES: Pharmacy called regarding patient's heparin drip. PTT: 76. No changes in heparin drip rate. Timed PTT scheduled for tomorrow AM 04:00. No ASE noted. Will continue to monitor.
--- NOTE | 2020-08-11 07:30 | NUR ---
NURSE HAND-OFF REPORT: Important Events on Shift:[Heparin drip initiated during the shift. No change in dosage. Timed PTT tomorrow 04:00AM] Patient Status: [FC] Diet: [Low sodium, 1.5 L fluid restriction] Pending Orders: [] Pending Results/Labs:[2d echo] Pending MD notification:[] Latest Vital Signs: Temperature 97.9 , Pulse 64 , B/P 103 /57 , Respiratory Rate 19 , O2 SAT 98 , , O2 Flow Rate . Vital Sign Comment: [] EKG Rhythm: Sinus Rhythm Rhythm change?: N MD Notified?: - MD Response: Latest Lopez Fall Score: 35 Fall Risk: Medium Risk Safety Measures: Call light Within Reach, Bed Alarm Zone 1, Side Rails Side Rails x2, Bed position Low and Locked. Fall Precautions: Yellow Socks Yellow Gown Door Sign Patient Fall Education Report given to [REMIGIO Rojas].
--- NOTE | 2020-08-11 07:31 | NUR ---
NURSE NOTES: Received patient awake in bed. No SOB or acute distress. IV line intact and patent. No complaints of pain or discomfort at this time. For 2D echo today. Will continue plan of care and monitoring for pain. HOB elevated. Bed locked in low position. Call light within reach.
--- NOTE | 2020-08-11 07:34 | History and Physical ---
History of Present Illness General Date patient seen: Aug 11, 2020 Reason for Hospitalization: leg swelling Present Illness Allergies: Coded Allergies: LATEX (Verified Allergy, Intermediate, rash, 12/20/19) DIAZEPAM (Unverified Adverse Reaction, Severe, HALLUCINATIONS, 12/16/19) Uncoded Allergies: CITRUS (Allergy, Severe, ITCHING, 12/16/19) COVID-19 Screening Contact w/high risk pt: No Recent Travel to affected area: No Experienced COVID-19 symptoms?: No Medication History Scheduled Atorvastatin Calcium* (Atorvastatin Calcium*), 80 MG ORAL BEDTIME, (Reported) Gabapentin* (Gabapentin*), 600 MG ORAL THREE TIMES A DAY, (Reported) Lipase/Protease/Amylase (Creon Dr 12,000 Units Capsule), 1 EACH PO TID, (Reported) Metoprolol Succinate* (Metoprolol Succinate*), 25 MG ORAL DAILY, (Reported) Montelukast Sodium* (Montelukast Sodium*), 10 MG ORAL DAILY, (Reported) Pantoprazole* (Pantoprazole*), 40 MG ORAL DAILY, (Reported) Ranitidine Hcl* (Zantac*), 150 MG ORAL TWICE A DAY, (Reported) [Probiotic ], 1 EA PO DAILY, (Reported) Patient History History Provided By: Patient, Medical Record Healthcare decision maker N Resuscitation status full code Advanced Directive on File N Patient History Narrative Patient is a 70-year-old pleasant -[place] female with history of hypertension and hyperlipidemia who was recently diagnosed with right lower extremity DVT and pulmonary embolism at [facility] earlier this month. She tells me she also underwent a cardiac cath which showed clean coronary arteries. Patient had another episode of DVT in the past few years for which she took Xarelto but was told to stop by her physician at [facility]. Patient developed left lower extremity swelling and shortness of breath for the past 2 days. She says her lower extremity looked similar to when she had a DVT in the right leg and she was scared so she came to the ER. She also has to climb 17 flights of stairs and been finding get more and more difficult due to shortness of breath. Her shortness of breath is moderate. She does not experience it at rest however she has realized she gets short of breath while speaking. Patient called exchange nurse and was told to proceed to the nearest emergency department. She does not recall having been tested for any hypercoagulable disorder. In the ED patient was hemodynamically stable. Her EKG showed normal sinus rhythm no acute ST-T changes. Labs showed elevated troponin of 0.167 and elevated BNP of 570. Chest x-ray showed no evidence of pneumonia or pleural effusion. She received aspirin and Lasix and was admitted for further care. Past medical history: Hypertension, PE, DVT, dyslipidemia Past surgical history: Cardiac cath via right femoral Angio-Seal vascular closure device Social history: Denies smoking cigarettes, denies alcohol and illicit drug use. Family history: No family history of blood clots. vascular surgeon: [phone] Review of Systems Constitutional: Denies: no symptoms, see HPI, chills, sweats, fever, malaise, weakness, other Eye: Denies: no symptoms, see HPI, eye pain, blurred vision, tearing, double vision, nose pain, nose congestion, acuity changes, discharge, other ENT: Denies: no symptoms, see HPI, ear pain, ear discharge, nose pain, nose congestion, throat pain, throat swelling, mouth pain, hearing loss, nasal discharge, other Respiratory: Reports: no symptoms, see HPI, cough, orthopnea, shortness of breath - Especially when ambulating, stridor, wheezing, SANTANA - Still manages to go up 17 flights of stairs, sputum, other Cardiovascular: Reports: no symptoms, see HPI, chest pain, edema - Bilateral but worse in the left lower extremity, palpitations, syncope, PND, other Gastrointestinal: Denies: no symptoms, see HPI, abdominal pain, constipation, diarrhea, nausea, vomiting, melena, hematemesis, other Musculoskeletal: Denies: no symptoms, see HPI, back pain, gout, joint pain, joint swelling, muscle pain, muscle stiffness, other Skin: Denies: no symptoms, see HPI, rash, change in color, change in hair/nails, dryness, lesions, other Psychiatric: Denies: no symptoms, see HPI, prior hx, anxiety, depressed feelings, emotional problems, SI, HI, hallucinations, other Neurological: Denies: no symptoms, see HPI, headache, numbness, paresthesia, seizure, tingling, tremors, focal weakness, syncope, dizziness, other Endocrine: Denies: no symptoms, see HPI, excessive sweating, flushing, intolerance to temperature, increased thirst, increased urine, unexplained weight loss, other Hematologic/Lymphatic: Denies: no symptoms, see HPI, anemia, blood clots, easy bleeding, easy bruising, swollen glands, diathesis, other Physical Exam General Appearance: no apparent distress Lines, tubes and drains: peripheral HEENT: normocephalic, atraumatic, anicteric, mucous membranes moist, PERRL Neck: non-tender, supple, normal inspection Respiratory/Chest: lungs clear, normal breath sounds, no respiratory distress, no accessory muscle use Cardiovascular/Chest: normal peripheral pulses, normal rate, regular rhythm, no JVD Abdomen: normal bowel sounds, non tender, soft, no organomegaly, no mass Extremities: trace edema - bilateral LE Skin Exam: normal pigmentation 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: 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, no motor/sensory deficits, alert, oriented x 3, responsive Musculoskeletal: normal muscle bulk Last 24 Hour Vital Signs Date Time Temp Pulse Resp B/P (MAP) Pulse Ox O2 Delivery O2 Flow Rate FiO2 08/11/20 04:00 64 08/11/20 04:00 97.9 61 19 103/57 (72) 98 08/11/20 00:00 60 08/11/20 00:00 96.4 60 20 103/57 (72) 98 08/10/20 22:33 Room Air 08/10/20 20:45 97.9 70 18 128/82 100 99 08/10/20 18:59 97.9 08/10/20 18:52 97.9 73 17 134/89 100 08/10/20 17:58 138/89 08/10/20 17:58 138/89 08/10/20 17:03 97.9 76 18 122/68 98 08/10/20 17:03 76 17 99 08/10/20 16:27 97.9 62 18 115/66 (82) Intake and Output 08/10/20 08/11/20 19:00 07:00 Intake Total 0 ml 210 ml Balance 0 ml 210 ml Intake Oral 0 ml 210 ml # Voids 6 # Bowel Movements 1 Laboratory Tests Test 08/10/20 16:52 08/11/20 04:00 White Blood Count 6.8 K/UL (4.8-10.8) 5.5 K/UL (4.8-10.8) Red Blood Count 3.45 M/UL (4.20-5.40) L 3.09 M/UL (4.20-5.40) L Hemoglobin 9.8 G/DL (12.0-16.0) L 8.7 G/DL (12.0-16.0) L Hematocrit 31.0 % (37.0-47.0) L 25.9 % (37.0-47.0) L Mean Corpuscular Volume 90 FL (80-99) 84 FL (80-99) Mean Corpuscular Hemoglobin 28.3 PG (27.0-31.0) 28.2 PG (27.0-31.0) Mean Corpuscular Hemoglobin Concent 31.5 G/DL (32.0-36.0) L 33.6 G/DL (32.0-36.0) Red Cell Distribution Width 15.0 % (11.6-14.8) H 13.8 % (11.6-14.8) Platelet Count 273 K/UL (150-450) 253 K/UL (150-450) Mean Platelet Volume 6.9 FL (6.5-10.1) 6.2 FL (6.5-10.1) L Neutrophils (%) (Auto) 60.3 % (45.0-75.0) 61.6 % (45.0-75.0) Lymphocytes (%) (Auto) 29.6 % (20.0-45.0) 28.7 % (20.0-45.0) Monocytes (%) (Auto) 6.8 % (1.0-10.0) 7.0 % (1.0-10.0) Eosinophils (%) (Auto) 1.8 % (0.0-3.0) 1.7 % (0.0-3.0) Basophils (%) (Auto) 1.6 % (0.0-2.0) 1.0 % (0.0-2.0) Prothrombin Time 15.6 SEC (9.30-11.50) H Prothromb Time International Ratio 1.5 (0.9-1.1) H Activated Partial Thromboplast Time 32 SEC (23-33) 76 SEC (23-33) H Sodium Level 141 MMOL/L (136-145) 142 MMOL/L (136-145) Potassium Level 3.3 MMOL/L (3.5-5.1) L 3.0 MMOL/L (3.5-5.1) L Chloride Level 106 MMOL/L (98-107) 107 MMOL/L (98-107) Carbon Dioxide Level 25 MMOL/L (21-32) 28 MMOL/L (21-32) Anion Gap 10 mmol/L (5-15) 7 mmol/L (5-15) Blood Urea Nitrogen 10 mg/dL (7-18) 10 mg/dL (7-18) Creatinine 1.1 MG/DL (0.55-1.30) 1.0 MG/DL (0.55-1.30) Estimat Glomerular Filtration Rate 59.4 mL/min (>60) > 60 mL/min (>60) Glucose Level 95 MG/DL (74-106) 93 MG/DL (74-106) Calcium Level 8.2 MG/DL (8.5-10.1) L 7.7 MG/DL (8.5-10.1) L Total Bilirubin 0.4 MG/DL (0.2-1.0) Aspartate Amino Transf (AST/SGOT) 29 U/L (15-37) Alanine Aminotransferase (ALT/SGPT) 13 U/L (12-78) Alkaline Phosphatase 99 U/L (46-116) Troponin I 0.186 ng/mL (0.000-0.056) 0.172 ng/mL (0.000-0.056) Pro-B-Type Natriuretic Peptide 537 pg/mL (0-125) H Total Protein 5.6 G/DL (6.4-8.2) L Albumin 2.3 G/DL (3.4-5.0) L Globulin 3.3 g/dL Albumin/Globulin Ratio 0.7 (1.0-2.7) L Triglycerides Level 48 MG/DL (30-150) Cholesterol Level 141 MG/DL (< 200) LDL Cholesterol 39 mg/dL (<100) HDL Cholesterol 93 MG/DL (40-60) H Cholesterol/HDL Ratio 1.5 (3.3-4.4) L Thyroid Stimulating Hormone (TSH) 4.242 uiU/mL (0.358-3.740) Microbiology Date/Time Source Procedure Growth Status 08/10/20 18:35 Nasopharynx SARS-CoV-2 RdRp Gene Assay - Final Complete Height (Feet): 5 Height (Inches): 6.00 Weight (Pounds): 173 Medications Current Medications Medications (Trade) Dose Ordered Sig/Inga Route PRN Reason Start Time Stop Time Status Last Admin Dose Admin Acetaminophen (Tylenol) 650 mg Q4H PRN ORAL FEVER 08/10/20 19:00 09/09/20 18:59 Acetaminophen (Tylenol) 650 mg Q4H PRN ORAL Mild Pain (Pain Scale 1-3) 08/10/20 19:00 09/09/20 18:59 Al Hydroxide/Mg Hydroxide (Mylanta II) 30 ml Q6H PRN ORAL dyspepsia 08/10/20 19:00 09/09/20 18:59 Albuterol/ Ipratropium (Albuterol/ Ipratropium) 3 ml Q6H PRN HHN Shortness of Breath 08/10/20 19:00 08/15/20 18:59 Aspirin (Ecotrin) 81 mg DAILY ORAL 08/11/20 09:00 09/25/20 08:59 Diphenhydramine HCl (Benadryl) 25 mg Q6H PRN ORAL Itching/Pruritis 08/10/20 19:00 09/09/20 18:59 Enalaprilat (Vasotec) 2.5 mg Q6H PRN IV SBP>160 08/10/20 21:15 09/09/20 21:14 Famotidine (Pepcid) 20 mg BID ORAL 08/11/20 09:00 11/09/20 08:59 Furosemide (Lasix) 20 mg BID IV 08/10/20 21:00 09/09/20 20:59 08/10/20 21:37 Heparin Sodium/ Dextrose 500 ml @ 18.84 mls/ hr ADJUST PER PROTOCOL IV 08/10/20 21:00 09/09/20 20:59 08/10/20 22:07 Hydromorphone HCl (Dilaudid) 1 mg Q6H PRN IVP Moderate Pain (Pain Scale 4-6) 08/10/20 19:00 08/17/20 18:59 Hydromorphone HCl (Dilaudid) 2 mg Q6H PRN IVP Severe Pain (Pain Scale 7-10) 08/10/20 19:00 08/17/20 18:59 08/11/20 02:44 Magnesium Hydroxide (Mom) 30 ml HSPRN PRN ORAL Constipation 08/10/20 19:00 09/09/20 18:59 Nitroglycerin (Ntg) 0.4 mg Q2H PRN SL Prn Chest Pain 08/10/20 19:00 09/09/20 18:59 Ondansetron HCl (Zofran) 4 mg Q6H PRN IVP Nausea & Vomiting 08/10/20 19:00 09/09/20 18:59 Zolpidem Tartrate (Ambien) 5 mg HSPRN PRN ORAL Insomnia 08/10/20 19:00 08/17/20 18:59 08/10/20 21:36 Assessment/Plan Problem List: (1) CHF (congestive heart failure) ICD Codes: I50.9 - Heart failure, unspecified SNOMED: 14047067 (2) Pulmonary embolism ICD Codes: I26.99 - Other pulmonary embolism without acute cor pulmonale SNOMED: 54866734, 711312399 (3) NSTEMI (non-ST elevated myocardial infarction) ICD Codes: I21.4 - Non-ST elevation (NSTEMI) myocardial infarction SNOMED: 16146278, 766448528 (4) DVT (deep vein thrombosis) in ICD Codes: O22.30 - Deep phlebothrombosis in , unspecified trimester SNOMED: 24379931, 952009700 (5) Elevated troponin I level ICD Codes: R77.8 - Other specified abnormalities of plasma proteins SNOMED: 118433287, 012290456 (6) Hypokalemia ICD Codes: E87.6 - Hypokalemia SNOMED: 96603544 Status: stable Assessment/Plan: 70-year-old female with history of multiple DVTs and recent DVT and PE who presented with peripheral edema and shortness of breath. Found to have small troponin elevation and elevated BNP. No chest pain reported. Patient reports recent clean coronaries via cardiac cath at [facility]. She is admitted to telemetry for further evaluation. #NSTEMI #Hypertension #CHF exacerbation. Systolic versus diastolicpending 2D echocardiogram Initiate cardiac monitoring Initiate heparin drip. Hold rivaroxaban Continue aspirin 81 mg daily Continue atorvastatin 80 mg nightly Metoprolol succinate 25 mg daily 2D echo Serial troponin until it peaks Cardiology consult with Obtain records from [facility] #History of recent PE #History of recent right lower extremity DVT. Hold home rivaroxaban Continue heparin drip Ultrasound Doppler #Neuropathy Continue gabapentin 600 mg 3 times daily I spent 72 minutes on this encounter greater than 50% (35 minutes) spent on coun seling and care coordination. Plan of care discussed with patient RN and design sales consultant Dr. Madden. Kerwin Waters M.D. Aug 11, 2020 07:34
[2020-08-11 08:00] VITALS: BP 124/52
[2020-08-11] MEDS ORDERED: Aspirin EC 81mg tab ORAL SCH (09:00)
[2020-08-11] MEDS ORDERED: Montelukast 10mg tablet ORAL SCH (09:30)
[2020-08-11] MEDS: CREON 12000 UNIT ORAL SCH ×3 (10:52→13:36)
[2020-08-11] MEDS ORDERED: Metoprolol Succinate XL 25mg tab ORAL SCH (11:00)
[2020-08-11 11:09] VITALS: BP 121/61
--- NOTE | 2020-08-11 13:17 | Cardiac Electrophysiology PN ---
Subjective Subjective [id number] Objective Last 24 Hour Vital Signs Date Time Temp Pulse Resp B/P (MAP) Pulse Ox O2 Delivery O2 Flow Rate FiO2 08/11/20 12:00 56 08/11/20 11:09 96.7 57 20 121/61 (81) 96 08/11/20 10:51 57 121/61 08/11/20 09:00 Room Air 08/11/20 08:00 58 08/11/20 08:00 97.5 56 18 124/52 (76) 96 08/11/20 04:00 64 08/11/20 04:00 97.9 61 19 103/57 (72) 98 08/11/20 00:00 60 08/11/20 00:00 96.4 60 20 103/57 (72) 98 08/10/20 22:33 Room Air 08/10/20 20:45 97.9 70 18 128/82 100 99 08/10/20 18:59 97.9 08/10/20 18:52 97.9 73 17 134/89 100 08/10/20 17:58 138/89 08/10/20 17:58 138/89 08/10/20 17:03 97.9 76 18 122/68 98 08/10/20 17:03 76 17 99 08/10/20 16:27 97.9 62 18 115/66 (82) Intake and Output 08/10/20 08/11/20 19:00 07:00 Intake Total 0 ml 360.72 ml Balance 0 ml 360.72 ml Intake Oral 0 ml 210 ml IV Total 150.72 ml # Voids 6 # Bowel Movements 1 Laboratory Tests Test 08/10/20 16:52 08/11/20 04:00 08/11/20 05:30 White Blood Count 6.8 K/UL (4.8-10.8) 5.5 K/UL (4.8-10.8) Red Blood Count 3.45 M/UL (4.20-5.40) L 3.09 M/UL (4.20-5.40) L Hemoglobin 9.8 G/DL (12.0-16.0) L 8.7 G/DL (12.0-16.0) L Hematocrit 31.0 % (37.0-47.0) L 25.9 % (37.0-47.0) L Mean Corpuscular Volume 90 FL (80-99) 84 FL (80-99) Mean Corpuscular Hemoglobin 28.3 PG (27.0-31.0) 28.2 PG (27.0-31.0) Mean Corpuscular Hemoglobin Concent 31.5 G/DL (32.0-36.0) L 33.6 G/DL (32.0-36.0) Red Cell Distribution Width 15.0 % (11.6-14.8) H 13.8 % (11.6-14.8) Platelet Count 273 K/UL (150-450) 253 K/UL (150-450) Mean Platelet Volume 6.9 FL (6.5-10.1) 6.2 FL (6.5-10.1) L Neutrophils (%) (Auto) 60.3 % (45.0-75.0) 61.6 % (45.0-75.0) Lymphocytes (%) (Auto) 29.6 % (20.0-45.0) 28.7 % (20.0-45.0) Monocytes (%) (Auto) 6.8 % (1.0-10.0) 7.0 % (1.0-10.0) Eosinophils (%) (Auto) 1.8 % (0.0-3.0) 1.7 % (0.0-3.0) Basophils (%) (Auto) 1.6 % (0.0-2.0) 1.0 % (0.0-2.0) Prothrombin Time 15.6 SEC (9.30-11.50) H Prothromb Time International Ratio 1.5 (0.9-1.1) H Activated Partial Thromboplast Time 32 SEC (23-33) 76 SEC (23-33) H Sodium Level 141 MMOL/L (136-145) 142 MMOL/L (136-145) Potassium Level 3.3 MMOL/L (3.5-5.1) L 3.0 MMOL/L (3.5-5.1) L Chloride Level 106 MMOL/L (98-107) 107 MMOL/L (98-107) Carbon Dioxide Level 25 MMOL/L (21-32) 28 MMOL/L (21-32) Anion Gap 10 mmol/L (5-15) 7 mmol/L (5-15) Blood Urea Nitrogen 10 mg/dL (7-18) 10 mg/dL (7-18) Creatinine 1.1 MG/DL (0.55-1.30) 1.0 MG/DL (0.55-1.30) Estimat Glomerular Filtration Rate 59.4 mL/min (>60) > 60 mL/min (>60) Glucose Level 95 MG/DL (74-106) 93 MG/DL (74-106) Calcium Level 8.2 MG/DL (8.5-10.1) L 7.7 MG/DL (8.5-10.1) L Total Bilirubin 0.4 MG/DL (0.2-1.0) Aspartate Amino Transf (AST/SGOT) 29 U/L (15-37) Alanine Aminotransferase (ALT/SGPT) 13 U/L (12-78) Alkaline Phosphatase 99 U/L (46-116) Troponin I 0.186 ng/mL (0.000-0.056) 0.172 ng/mL (0.000-0.056) Pro-B-Type Natriuretic Peptide 537 pg/mL (0-125) H Total Protein 5.6 G/DL (6.4-8.2) L Albumin 2.3 G/DL (3.4-5.0) L Globulin 3.3 g/dL Albumin/Globulin Ratio 0.7 (1.0-2.7) L Triglycerides Level 48 MG/DL (30-150) Cholesterol Level 141 MG/DL (< 200) LDL Cholesterol 39 mg/dL (<100) HDL Cholesterol 93 MG/DL (40-60) H Cholesterol/HDL Ratio 1.5 (3.3-4.4) L Thyroid Stimulating Hormone (TSH) 4.242 uiU/mL (0.358-3.740) Free Thyroxine 1.05 NG/DL (0.76-1.46) Microbiology Date/Time Source Procedure Growth Status 08/10/20 18:35 Nasopharynx SARS-CoV-2 RdRp Gene Assay - Final Complete Nomi Madden MD Aug 11, 2020 13:17
--- NOTE | 2020-08-11 14:17 | NUR ---
CASE MANAGEMENT:REVIEW 70 YR OLD FEMALE WALKED INTO ER CC: LLE PAIN AND SWELLING PMH: PULMONARY EMBOLI SI: NSTEMI. DVT (FEMORAL AND POPLITEAL) 97.8 62 18 115/66 98% ON RA TROPONIN(+) 0.186 IS: ASA PO NITRO 1" IV VASOTEC IV LASIX IV MORPHINE IV ZOFRAN VENOUS DUPLEX CHEST XRAY : TO TELEMETRY DCP: FROM HOME PLAN: HEPARIN GTT
--- NOTE | 2020-08-11 14:48 | NUR ---
NURSE NOTES: Patient raising her voice at [facility] and charge nurse Tyrell. She said she has been waiting for Dr Madden to come back because she said Dr Madden told her he was coming back. Patient also wishes to speak with the children's lunchroom supervisor, Edge Stainer Eleanor jeong.
--- NOTE | 2020-08-11 15:09 | NUR ---
NURSE NOTES: Patient spoke with Dr Madden and currently speaking with Peanut Roaster Eleanor and [employer] director Evelin.
--- NOTE | 2020-08-11 15:21 | NUR ---
NURSE NOTES: Patient wishes to be discharged, but if MD does not give DC orders, she will go AMA. Dr Albarado contacted and left message, awaiting callback.
--- NOTE | 2020-08-11 15:42 | NUR ---
NURSE NOTES: Patient not cleared by Dr Waters for discharge. Patient signed AMA, IV line removed, youth nutritional monitor removed. Patient picked up by son and ambulated to lobby. Dr Madden and Dr Waters aware.
--- NOTE | 2020-08-11 18:59 | Discharge Summary ---
Discharge Summary Hospital Course Date of Admission Aug 10, 2020 at 17:55 Date of Discharge Aug 11, 2020 at 15:58 Admitting Diagnosis NSTEMI, DVT, PE, TROP 0.186 HPI Karlene Scherer is a 70 year old female who was admitted on Aug 10, 2020 at 17:[address]vation Myocardial Infarction,Deep Vein- Consultations Cardiology: Dr. uMrry Hospital Course 70-year-old female with history of multiple DVTs and recent DVT and PE who presented with peripheral edema and shortness of breath. Found to have small troponin elevation and elevated BNP. No chest pain reported. Patient reports recent clean coronaries via cardiac cath at [facility]. She was admitted to telemetry for further evaluation. She was placed on heparin drip. Seen by cardiology. I was notified that patient was unhappy with care and decided to sign out AMA. DC diagnosis- incomplete due to AMA #NSTEMI #Hypertension #CHF exacerbation. Diastolic #History of recent PE #History of recent right lower extremity DVT. #Neuropathy Discharge Discharge Vital Signs Last Vital Signs Date Time Temp Pulse Resp B/P (MAP) Pulse Ox O2 Delivery O2 Flow Rate FiO2 08/11/20 12:00 56 08/11/20 11:09 96.7 20 121/61 (81) 96 08/11/20 09:00 Room Air 08/10/20 20:45 99 Discharge Disposition Patient was discharged to AMA Discharge Diagnoses: (1) NSTEMI (non-ST elevated myocardial infarction) (2) CHF (congestive heart failure) (3) Pulmonary embolism (4) Elevated troponin I level Kerwin Waters M.D. Aug 11, 2020 18:59
--- NOTE | 2020-08-11 19:00 | Consultation ---
DATE OF CONSULTATION: 08/11/2020 CARDIOLOGY CONSULTATION CONSULTING PHYSICIAN: Nomi Madden MD REFERRING PHYSICIAN: Mazin Albarado MD REASON FOR CONSULTATION: Elevated troponin. HISTORY OF PRESENT ILLNESS: The patient is a 70-year-old lady with history of pulmonary embolism, status post coronary angiogram per the patient, who underwent right femoral Angio-Seal placement at [facility] on August 02, 2020. The patient also has history of right lower extremity DVT on Eliquis, hypertension, and hyperlipidemia. The patient presented to the emergency room with shortness of breath. She called the nurse, who told her to go to the nearest emergency room. The patient underwent an EKG that showed normal sinus rhythm with no acute ST-T wave abnormalities. Her echocardiogram showed ejection fraction of 60%. REVIEW OF SYSTEMS: Negative other than what was mentioned in the history of present illness. PAST MEDICAL HISTORY: As mentioned above. FAMILY HISTORY: Noncontributory. SOCIAL HISTORY: Does not smoke or drink alcohol. PHYSICAL EXAMINATION: VITAL SIGNS: Blood pressure of 110/61, pulse is 56, respirations 18, and temperature 96.7. HEAD AND NECK: Showed no JVD. LUNGS: Clear. CARDIOVASCULAR: Shows regular S1 and S2 with no gallop or murmur. ABDOMEN: Soft. EXTREMITIES: No pitting edema. LABORATORY AND DIAGNOSTIC DATA: Labs show white count of 5.5, hemoglobin 8.7, hematocrit 26, and platelet count of 253,000. Sodium 142, potassium 3.0, BUN of 10, creatinine 1, and glucose of 93. Troponin was 0.18 and 0.172. ASSESSMENT AND PLAN: 1. Shortness of breath and troponin elevation. The patient states that she just had a cardiac catheterization on August 02 at [facility]. This is likely due to the patient's pulmonary embolism. Her EKG is nonischemic. Echocardiogram showed normal left ventricular systolic function. In the meantime, continue Toprol-XL 25 mg daily, Lipitor 80 at bedtime, and aspirin 81 mg daily. 2. History of DVT and pulmonary embolism. The patient is on heparin drip. The patient has history of multiple DVTs and history of DVT and PE. 3. Hypokalemia. Potassium will be replaced. 4. Congestive heart failure with diastolic dysfunction, on Lasix. It is of note the patient was on Xarelto at home, continue to hold, and start the patient on heparin drip. Thank you very much for allowing me to participate in the care of this patient. Please do not hesitate to contact me for any questions regarding my evaluation. Nomi Madden M.D. DR: SARA JOB#: [id number] CC:
[2020-08-11] MEDS ORDERED: Atorvastatin 80mg tab ORAL SCH (21:00)
--- NOTE | 2020-08-13 08:57 | Cardiology Report ---
APPROVED REPORT EXAM: Two-dimensional and M-mode echocardiogram with Doppler and color Doppler. INDICATION Shortness of breath M-Mode DIMENSIONS IVSd1.1 (0.7-1.1cm)Left Atrium (MM)4.1 (1.6-4.0cm) LVDd5.1 (3.5-5.6cm)Aortic Root2.3 (2.0-3.7cm) PWd1.1 (0.7-1.1cm)Aortic Cusp Exc.1.8 (1.5-2.0cm) IVSs1.7 cmEPSS0.5 (>1.0cm) LVDs3.4 (2.5-4.0cm) PWs1.6 cm <Conclusion> Technically difficult study due to pt's breathing. Normal left ventricular chamber size, systolic function and wall motion. Left ventricular ejection fraction estimated to be 60 %. Moderate left ventricular hypertrophy by 2-D. Anterior Echo-free space, may be due to pericardial fat or effusion. Left atrial size at upper limits of normal. Right cardiac chamber sizes are within normal limits. Moderate focal aortic valve sclerosis with adequate cusp excursion. Thickened mitral valve leaflets with normal excursion. Mitral annulus and aortic root calcification. Pulmonic valve not well visualized. Normal tricuspid valve structure. IVC at normal size with physiologic collapsing. A color flow and spectral Doppler study was performed and revealed: Trace aortic regurgitation. Trace mitral regurgitation. Mitral diastolic velocities suggest reduced left ventricular relaxation c/w mild diastolic dysfunction (Grade I). Trace tricuspid regurgitation. Tricuspid systolic velocities suggests peak right ventricular systolic pressure of 19 mmHg. Moderate pulmonic regurgitation present.
--- NOTE | 2020-08-13 19:36 | Cardiology Report ---
APPROVED REPORT EKG Measurement Heart [id number] <Conclusion> Normal sinus rhythm Cannot rule out Anterior infarct, age undetermined Abnormal ECG
== END 2020-08-11 15:58 | disposition left against medical advice (07) | DRG 280 ==
LOC: EMR 17:04 → 2E 17:55 → EDBEDREQ 20:24
DX: I21.4 Non-ST elevation (NSTEMI) myocardial infarction (principal); I26.99 Other pulmonary embolism without acute cor pulmonale; I50.33 Acute on chronic diastolic (congestive) heart failure; I82.409 Acute embolism and thrombosis of unspecified deep veins of unspecified lower extremity; I11.0 Hypertensive heart disease with heart failure; G62.9 Polyneuropathy, unspecified; Z88.8 Allergy status to other drugs, medicaments and biological substances; Z91.040 Latex allergy status; E87.6 Hypokalemia; E78.5 Hyperlipidemia, unspecified
CPT/HCPCS: 36415; 71045; 80048; 80053; 80061; 83880; 84439; 84443; 84484; 85025; 85610; 85730; 93005; 93306; 93970; 96374; 96375; 99291; J2405; J7620; J8499; U0002